=== PATIENT | female | born 1930 | race Hispanic/Latino ===

== ENCOUNTER 2017-08-03 11:46 | Inpatient (IN) | payer MEDICARE, BC ==
[2017-08-03 12:00] VITALS: BMI 26.0
--- NOTE | 2017-08-03 12:25 | C.PDOC ---
History Of Present Illness 87 Y/O FEMALE REFERRED TO ED BY DR. BRADLEY FOR WORSENING REDNESS AND SWELLING TO LEFT LEG FOR 5 DAYS. PATIENT STATES SYMPTOMS ARE NOT IMPROVED WITH WARM COMPRESS ADVISED BY DR. BRADLEY. PATIENT ADMITS TO CHRONIC LEG SWELLING LEFT > RIGHT BUT LEG MORE SWOLLEN THAN USUAL NOW. PATIENT DENIES FEVER, NAUSEA, VOMITING OR CHEST PAIN. Time Seen by Provider: 08/03/17 12:17 Chief Complaint (Nursing): Lower Extremity Problem/Injury History Per: Patient History/Exam Limitations: no limitations Onset/Duration Of Symptoms: Days Current Symptoms Are (Timing): Still Present Past Medical History Reviewed: Historical Data, Nursing Documentation, Vital Signs Vital Signs: Last Vital Signs Temp 98.0 F 08/03/17 12:01 Pulse 56 L 08/03/17 12:01 Resp 17 08/03/17 12:01 BP 160/88 H 08/03/17 12:01 Pulse Ox 97 08/03/17 14:16 - Medical History PMH: Anxiety, Arthritis, Back Problems, CAD, Depression, Deep Vein Thrombosis, Hiatal Hernia, HTN, Pulmonary Embolism Surgical History: Appendectomy, Cholecystectomy, Hernia Repair (ventral) - [facility] Procedures DRAINAGE OF LEFT KNEE JOINT, PERCUTANEOUS APPROACH, DIAGN (02/21/15) DRAINAGE OF RIGHT FOOT SKIN, EXTERNAL APPROACH (02/25/15) DRAINAGE OF RIGHT FOOT, PERCUTANEOUS APPROACH, DIAGNOSTIC (02/21/15) DRAINAGE OF RIGHT KNEE JOINT, PERCUTANEOUS APPROACH, DIAGN (02/21/15) EXCISION OF TOE NAIL, EXTERNAL APPROACH (02/25/15) GAIT TRAINING/AMBULAT TREATMENT USING ASSIST EQUIPMENT (02/25/15) HOME MANAGEMENT TREATMENT USING ASSIST EQUIPMENT (02/25/15) OTH NONOPER NEUROLOGIC FUNCT TEST (08/30/01) Family History: States: No Known Family Hx - Social History Hx Alcohol Use: No Hx Substance Use: No - Immunization History Hx Tetanus Toxoid Vaccination: No Hx Influenza Vaccination: Yes (2016) Hx Pneumococcal Vaccination: Yes Review Of Systems Constitutional: Negative for: Fever, Chills Cardiovascular: Negative for: Chest Pain Respiratory: Negative for: Shortness of Breath Gastrointestinal: Negative for: Nausea, Vomiting Musculoskeletal: Positive for: Leg Pain Skin: Negative for: Rash Neurological: Negative for: Weakness, Numbness Physical Exam - Physical Exam Appears: Non-toxic, No Acute Distress Skin: Warm, Dry, No Rash Head: Atraumatic, Normacephalic Oral Mucosa: Moist Neck: Normal ROM, Supple Cardiovascular: Rhythm Regular Respiratory: Normal Breath Sounds, No Rales, No Rhonchi, No Wheezing Gastrointestinal/Abdominal: Soft, No Tenderness, No Guarding, No Rebound Extremity: Pedal Edema (3+ non pitting to left foot and lower leg), No Deformity , Other (cellulitis at distal front aspect of left leg, foot and ankle intact. ) Extremity: Bilateral: Atraumatic, Normal ROM Pulses: Left Dorsalis Pedis: Normal Neurological/Psych: Oriented x3, Normal Speech, Normal Cognition ED Course And Treatment - Laboratory Results Result Diagrams: 08/03/17 13:50 08/03/17 13:50 O2 Sat by Pulse Oximetry: 97 (RA) Pulse Ox Interpretation: Normal - CT Scan/US DOPPLER Other Rad Studies (CT/US): Radiology Report Reviewed (NEG) Progress - Re-Evaluation Re-evaluation Note: 08/03/17 12:24 D/W DR BRADLEY STATES TO ADMIT TO HIS SERVICE, CONSULT ULYSSES FLORES AND CLAUDIO 08/03/17 14:21 LEFT LEG TIB FIB NEGATIVE Disposition Counseled Patient/Family Regarding: Studies Performed, Diagnosis - Disposition Disposition: HOSPITALIZED Disposition Time: 12:24 Condition: STABLE Forms: [facility] ([place]) - POA Present On Arrival: None - Clinical Impression Clinical Impression: Cellulitis - Scribe Statement The provider has reviewed the documentation as recorded by the Scribe Kelly Cheung All medical record entries made by the Natalyibe were at my direction and personally dictated by me. I have reviewed the chart and agree that the record accurately reflects my personal performance of the history, physical exam, medical decision making, and the department course for this patient. I have also personally directed, reviewed, and agree with the discharge instructions and disposition. Decision To Admit - Pt Status Changed To: Hospital Disposition Of: Inpatient - Admit Certification Admit to Inpatient:: After my assessment, the patient will require hospitalization for at least two midnights. This is because of the severity of symptoms shown, intensity of services needed, and/or the medical risk in this patient being treated as an outpatient. - InPatient: Physician Admission Certification: I certify that this patient requires 2 or more midnights of care for the following reason:: SEE NOTE - . Bed Request Type: Regular Admitting Physician: Radu Bradley Patient Diagnosis: Cellulitis
[2017-08-03] MEDS ORDERED: Vancomycin 1 gm/NS 200 ml 1 GM/200 ML BAG IVPB ONE (13:15)
[2017-08-03 13:56] LABS: BASO # 0.1 K/uL (0.0-0.2); BASO % 1.6 % (0.0-2.0); EOS % 0.5 % (0.0-4.0); HEMOGLOBIN 13.5 g/dL (11.0-16.0); LYMPH # 1.7 K/uL (1.0-4.3); LYMPH % 20.8 % (20.0-40.0); MEAN CELL VOLUME 100.7 fL (81.0-99.0); MEAN CORPUSCULAR HEMOGLOBIN 34.8 pg (27.0-31.0); MEAN CORPUSCULAR HGB CONC 34.5 g/dL (33.0-37.0); MEAN PLATELET VOLUME 9.7 fL (7.2-11.7); MONO # 0.9 K/uL (0.0-0.8); NEUT # 5.4 K/uL (1.8-7.0); NEUT % 66.1 % (50.0-75.0); NRBC % 0.2 % (0.0-2.0); RBC 3.87 Mil/uL (3.80-5.20); RED CELL DISTRIBUTION WIDTH 13.6 % (11.5-14.5); WHITE BLOOD COUNT 8.2 K/uL (4.8-10.8)
[2017-08-03 14:08] LABS: BLOOD UREA NITROGEN 15 mg/dL (7-17); CALCIUM 9.5 mg/dl (8.6-10.4); GFR AFRICAN-AMERICAN > 60; GFR NON-AFRICAN AMERICAN > 60
--- NOTE | 2017-08-03 15:41 | RAD ---
PROCEDURE: Radiographs of the left tibia and fibula. HISTORY: CELLULITIS COMPARISON: None available. TECHNIQUE: Frontal and lateral views obtained. FINDINGS: BONES: No fracture or destructive lesion. JOINT SPACES: Incompletely visualized degenerative changes left knee and left ankle. OTHER FINDINGS: Soft tissue swelling, edema up particularly lower calf and ankle. IMPRESSION: Soft tissue swelling without acute articular or osseous abnormality. Concordant results with the preliminary interpretation rendered by the emergency department physician procedure.
--- NOTE | 2017-08-03 15:42 | RAD ---
PROCEDURE: CHEST RADIOGRAPH, 1 VIEW HISTORY: MED CLEAR COMPARISON: None available. FINDINGS: LUNGS: Clear. PLEURA: No pneumothorax or pleural fluid seen. CARDIOVASCULAR: Cardiomegaly. No evidence of acute, significant cardiovascular disease. Tortuous thoracic aorta. OSSEOUS STRUCTURES: No significant abnormalities. VISUALIZED UPPER ABDOMEN: Normal. OTHER FINDINGS: None. IMPRESSION: No active disease.
--- NOTE | 2017-08-03 16:37 | CP.PCM.HP ---
Past Patient History - Infectious Disease Hx of Infectious Diseases: None - Past Medical History & Family History Past Medical History?: Yes - Past Social History Smoking Status: Never Smoked - CARDIAC Hx Hypertension: Yes - PULMONARY Hx Pulmonary Embolism: Yes - NEUROLOGICAL Hx Neurological Disorder: Yes HX Cerebrovascular Accident: No Other/Comment: hx of sciatica - HEENT Hx HEENT Problems: Yes (SEE COMMENT) Hx Glaucoma: Yes (right eye) Other/Comment: glaucoma - RENAL Hx Chronic Kidney Disease: No - ENDOCRINE/METABOLIC Hx Hypothyroidism: No - HEMATOLOGICAL/ONCOLOGICAL Hx Human Immunodeficiency Virus (HIV): No - INTEGUMENTARY Hx Dermatological Problems: No - MUSCULOSKELETAL/RHEUMATOLOGICAL Hx Arthritis: Yes - GASTROINTESTINAL Hx Gastrointestinal Disorders: No - GENITOURINARY/GYNECOLOGICAL Hx Genitourinary Disorders: No - PSYCHIATRIC Hx Anxiety: Yes Hx Depression: Yes Hx Substance Use: No - SURGICAL HISTORY Hx Appendectomy: Yes Hx Cholecystectomy: Yes - ANESTHESIA Hx Anesthesia: Yes Hx Anesthesia Reactions: No Meds Allergies/Adverse Reactions: Allergies Allergy/AdvReac Type Severity Reaction Status Date / Time oxycodone Allergy ANAPHYLAXIS Verified 08/03/17 11:59 Results - Vital Signs Recent Vital Signs: Last Vital Signs Temp 97.3 F L 08/03/17 14:47 Pulse 50 L 08/03/17 14:47 Resp 18 08/03/17 14:47 BP 168/70 H 08/03/17 14:47 Pulse Ox 98 08/03/17 14:47 - Labs Result Diagrams: 08/03/17 13:50 08/03/17 13:50 Labs: Laboratory Results - last 24 hr 08/03/17 08/03/17 13:50 13:50 WBC 8.2 RBC 3.87 Hgb 13.5 Hct 39.0 MCV 100.7 H MCH 34.8 H MCHC 34.5 RDW 13.6 Plt Count 245 MPV 9.7 Neut % (Auto) 66.1 Lymph % (Auto) 20.8 [place] % (Auto) 11.0 H Eos % (Auto) 0.5 Baso % (Auto) 1.6 Neut # (Auto) 5.4 Lymph # (Auto) 1.7 [place] # (Auto) 0.9 H Eos # (Auto) 0.0 Baso # (Auto) 0.1 Sodium 143 Potassium 3.8 Chloride 104 Carbon Dioxide 27 Anion Gap 15 BUN 15 Creatinine 0.7 Est GFR ( Amer) > 60 Est GFR (Non-Af Amer) > 60 Random Glucose 88 Calcium 9.5
[2017-08-03] MEDS: ceFAZolin 1 GM in Sodium Chloride 0.9% 100 ML IVPB SCH (22:00)
[2017-08-04] MEDS: ceFAZolin 1 GM in Sodium Chloride 0.9% 100 ML IVPB SCH ×3 (06:49→22:04)
[2017-08-04] MEDS ORDERED: Dorzolamide 2% Opht Sol 10ml OU SCH (10:00)
--- NOTE | 2017-08-04 10:58 | VASCLAB ---
PROCEDURE: Left Lower Extremity Venous Duplex Exam. HISTORY: R/O DVT PRIORS: Lower extremity ultrasound dated 06/02/2016. TECHNIQUE: Left common femoral, femoral, popliteal and posterior tibial, peroneal and great saphenous veins were evaluated. Flow was assessed with color Doppler, compressibility, assessment of phasic flow and augmentation response. Report prepared by Nehemias Dominguez, STEPHANI, RVT FINDINGS: LEFT: 1. Common Femoral Vein: 1.1. Compressibility - Fully compressible: Thrombus - None : Flow - Phasic: Augmentation -Normal: Reflux - None. 2. Femoral Vein: 2.1. Compressibility - Fully compressible: Thrombus - None: Flow - Phasic: Augmentation -Normal: Reflux - None. 3. Popliteal Vein: 3.1. Compressibility - Fully compressible: Thrombus - None: Flow - Phasic: Augmentation -Normal: Reflux - severe, 4.69 s. 4. Posterior Tibial Vein: 4.1. Compressibility - Fully compressible: Thrombus - None: Flow - Phasic: Augmentation -Normal: Reflux - None. 5. Peroneal Vein: 5.1. Compressibility - Fully compressible: Thrombus - None: Flow - Phasic: Augmentation -Normal: Reflux - None. 6. Great Saphenous Vein: 6.1. Compressibility - Fully compressible: Thrombus - None: Flow - Phasic: Augmentation - Normal: Reflux - moderate, 2.65 seconds. OTHER FINDINGS: IMPRESSION: No evidence of deep or superficial vein thrombosis of the left lower extremity with excellent venous flow. Severe reflux of the popliteal vein. Moderate reflux of the greater saphenous vein. Normal venous flow noted in the right common femoral vein.
[2017-08-04] MEDS: Oxybutynin XL 10 mg Tab PO SCH (11:00)
[2017-08-04] MEDS: Pilocarpine 2% Opht (15 ml) OU SCH ×3 (11:00→17:45)
[2017-08-04 11:37] LABS: PROTHROMBIN TIME 11.3 SECONDS (9.7-12.2)
[2017-08-04] MEDS ORDERED: Propofol 10 mg/ml Inj (20 ML) ONE ×2 (12:40→15:12)
[2017-08-04] MEDS ORDERED: Midazolam 2 MG/2 ML VIAL ONE (12:40)
--- NOTE | 2017-08-04 12:58 | CARD ---
APPROVED REPORT EKG Measurement Heart [id number] SC [id number] [id number] <Conclusion> Sinus bradycardia Left ventricular hypertrophy with QRS widening and repolarization abnormality Abnormal ECG
--- NOTE | 2017-08-04 12:59 | CARD ---
APPROVED REPORT EKG Measurement Heart [id number] CO [id number] [id number] <Conclusion> Sinus bradycardia Left ventricular hypertrophy with QRS widening and repolarization abnormality Abnormal ECG
--- NOTE | 2017-08-04 13:27 | CP.PCM.CON ---
History of Present Illness - History of Present Illness History of Present Illness: 87 Y/O FEMALE REFERRED TO ED BY DR. BRADLEY FOR WORSENING REDNESS AND SWELLING TO LEFT LEG FOR 5 DAYS. PATIENT STATES SYMPTOMS ARE NOT IMPROVED WITH WARM COMPRESS ADVISED BY DR. BRADLEY. referred for ID eval cellulitis left leg IV antibiotics ordered - Medical History PMH: Anxiety, Arthritis, Back Problems, CAD, Depression, Deep Vein Thrombosis, Hiatal Hernia, HTN, Pulmonary Embolism Surgical History: Appendectomy, Cholecystectomy, Hernia Repair (ventral) - [facility] Procedures DRAINAGE OF LEFT KNEE JOINT, PERCUTANEOUS APPROACH, DIAGN (02/21/15) DRAINAGE OF RIGHT FOOT SKIN, EXTERNAL APPROACH (02/25/15) DRAINAGE OF RIGHT FOOT, PERCUTANEOUS APPROACH, DIAGNOSTIC (02/21/15) DRAINAGE OF RIGHT KNEE JOINT, PERCUTANEOUS APPROACH, DIAGN (02/21/15) EXCISION OF TOE NAIL, EXTERNAL APPROACH (02/25/15) GAIT TRAINING/AMBULAT TREATMENT USING ASSIST EQUIPMENT (02/25/15) HOME MANAGEMENT TREATMENT USING ASSIST EQUIPMENT (02/25/15) OTH NONOPER NEUROLOGIC FUNCT TEST (08/30/01) Review of Systems - Review of Systems All systems: reviewed and no additional remarkable complaints except - Constitutional Constitutional: absent: Chills, Fever - EENT Eyes: As Per HPI. absent: Blind Spots, Blurred Vision, Change in Vision, Decreased Night Vision, Diplopia, Discharge, Dry Eye, Exophthalmos, Floaters, Irritation, Itchy Eyes, Loss of Peripheral Vision, Pain, Photophobia, Requires Corrective Lenses, Sees Flashes, Spots in Vision, Tunnel Vision, Other Visual Disturbances, Loss of Vision, Other Ears: absent: As Per HPI, Decreased Hearing, Ear Discharge, Ear Pain, Tinnitus, Abnormal Hearing, Disequilibrium, Dizziness, Other Nose/Mouth/Throat: absent: As Per HPI, Epistaxis, Nasal Congestion, Nasal Discharge, Nasal Obstruction, Nasal Trauma, Nose Pain, Post Nasal Drip, Sinus Pain, Sinus Pressure, Bleeding Gums, Change in Voice, Dental Pain, Dry Mouth, Dysphagia, Halitosis, Hoarsness, Lip Swelling, Mouth Lesions, Mouth Pain, Odynophagia, Sore Throat, Throat Swelling, Tongue Swelling, Facial Pain, Neck Pain, Neck Mass, Other - Breasts Breasts: absent: As Per HPI, Change in Shape, Mass, Pain, Nipple Discharge, Nipple Inversion, Skin Changes, Swelling, Other - Cardiovascular Cardiovascular: absent: As Per HPI, Acrocyanosis, Chest Pain, Chest Pain at Rest , Chest Pain with Activity, Claudication, Diaphoresis, Dyspnea, Dyspnea on Exertion, Edema, Irregular Heart Rhythm, Pain Radiating to Arm/Neck/Jaw, Leg Edema, Leg Ulcers, Lightheadedness, Orthopnea, Palpitations, Paroxysmal Nocturnal Dyspnea, Pedal Edema, Radiating Pain, Rapid Heart Rate, Slow Heart Rate, Syncope, Other - Respiratory Respiratory: absent: As Per HPI, Cough, Dyspnea, Hemoptysis, Dyspnea on Exertion , Wheezing, Snoring, Stridor, Pain on Inspiration, Chest Congestion, Excessive Mucous Production, Change in Mucous Color, Pain with Coughing, Other - Gastrointestinal Gastrointestinal: absent: As Per HPI, Abdominal Pain, Belching, Bloating, Change in Bowel Habits, Change in Stool Character, Coffee Ground Emesis, Constipation, Cramping, Diarrhea, Dyspepsia, Dysphagia, Early Satiety, Excessive Flatus, Fecal Incontinence, Heartburn, Hematemesis, Hematochezia, Loose Stools, Melena, Nausea, Odynophagia, Temesmus, Vomiting, Other - Genitourinary Genitourinary: absent: As Per HPI, Change in Urinary Stream, Difficulty Urinating, Dysuria, Flank Pain, Hematuria, Pyuria, Nocturia, Urinary Incontinence, Urinary Frequency, Urinary Hesitance, Urinary Urgency, Voiding Freq/Small Amts, Freq UTI, Hx Renal/Bladder Calculi, Hx /Renal Surgery, Bladder Distension, Other - Reproductive: Female Reproductive:Female: absent: As Per HPI, Amenorrhea, Amenorrhea/ Control, Currently Menstual, Cycle <21 Days, Cycle >35 Days, Cycle Variable, Menses 1-7 Days, Menses >/= 8 Days, Menses Variable, Cycle > 4 Weeks Between, No Menses for 6 Months, Heavy Menses, Light Menses, Normal Menses, Spotting Between Cycles , S/P Hysterectomy, Menopausal, Post Menopausal, Premenarche, Abnormal Vaginal Bleeding, Dysmenorrhea, Dyspareunia, Genital Lesions, Genital Pruritis, Pelvic Pain, Prolapse Symptoms, Sexual Dysfunction, Vaginal Discharge, Vaginal Dryness , Vaginal Odor, Vaginal Pruritis, Other - Menstruation Menstruation: absent: As Per HPI, Amenorrhea, Amenorrhea/ Control, Currently Menstual, Cycle <21 Days, Cycle >35 Days, Cycle Variable, Menses 1-7 Days, Menses >/= 8 Days, Menses Variable, Cycle > 4 Weeks Between, No Menses for 6 Months, Heavy Menses, Light Menses, Normal Menses, Spotting Between Cycles , S/P Hysterectomy, Menopausal, Post Menopausal, Premenarche, Abnormal Vaginal Bleeding, Dysmenorrhea, Other - Musculoskeletal Musculoskeletal: absent: As Per HPI, Abnormal Gait, Arthralgias, Atrophy, Back Pain, Deformity, Joint Swelling, Limited Range of Motion, Loss of Height, Muscle Cramps, Muscle Weakness, Myalgias, Neck Pain, Numbness, Radiating Pain into Limb, Stiffness, Tingling, Other - Integumentary Integumentary: As Per HPI - Neurological Neurological: absent: As Per HPI, Abnormal Gait, Abnormal Hearing, Abnormal Movements, Abnormal Speech, Behavioral Changes, Burning Sensations, Confusion, Convulsions, Disequilibrium, Dizziness, Numbness, Focal Weakness, Frequent Falls , Headaches, Lack of Coordination, Loss of Vision, Memory Loss, Paresthesias, Radicular Pain, Restless Legs, Sensory Deficit, Syncope, Tingling, Tremor, Vertigo, Weakness, Other Visual Disturbances, Other - Psychiatric Psychiatric: absent: As Per HPI, Abnormal Sleep Pattern, Anhedonia, Anxiety, Auditory Hallucinations, Behavioral Changes, Change in Appetite, Change in Libido, Confusion, Depression, Difficulty Concentrating, Hallucinations, Homicidal Ideation, Hopelessness, Irritability, Memory Loss, Mood Swings, Panic Attacks, Paranoia, Suicidal Ideation, Visual Hallucinations, Tactile Hallucinations, Other - Endocrine Endocrine: absent: As Per HPI, Change in Body Appearance, Change in Libido, Cold Intolorance, Deepening of Voice, Excessive Sweating, Fatigue, Flushing, Heat Intolorance, Increase in Ring/Shoe/Hat Size, Palpitations, Polydipsia, Polyphagia, Polyuria, Other - Hematologic/Lymphatic Hematologic: absent: As Per HPI, Easy Bleeding, Easy Bruising, Lymphadenopathy, Other Past Patient History - Infectious Disease Hx of Infectious Diseases: None - Past Medical History & Family History Past Medical History?: Yes - Past Social History Smoking Status: Never Smoked - CARDIAC Hx Hypertension: Yes - PULMONARY Hx Pulmonary Embolism: Yes - NEUROLOGICAL Hx Neurological Disorder: Yes HX Cerebrovascular Accident: No Other/Comment: hx of sciatica - HEENT Hx HEENT Problems: Yes (SEE COMMENT) Hx Glaucoma: Yes (right eye) Other/Comment: glaucoma - RENAL Hx Chronic Kidney Disease: No - ENDOCRINE/METABOLIC Hx Hypothyroidism: No - HEMATOLOGICAL/ONCOLOGICAL Hx Human Immunodeficiency Virus (HIV): No - INTEGUMENTARY Hx Dermatological Problems: No - MUSCULOSKELETAL/RHEUMATOLOGICAL Hx Arthritis: Yes Hx Falls: No - GASTROINTESTINAL Hx Gastrointestinal Disorders: No - GENITOURINARY/GYNECOLOGICAL Hx Genitourinary Disorders: No - PSYCHIATRIC Hx Anxiety: Yes Hx Depression: Yes Hx Substance Use: No - SURGICAL HISTORY Hx Appendectomy: Yes Hx Cholecystectomy: Yes Hx Hysterectomy: Yes - ANESTHESIA Hx Anesthesia: Yes Hx Anesthesia Reactions: No Hx Malignant Hyperthermia: No Has any member of the family had a problem w/ anesthesia?: No Meds Allergies/Adverse Reactions: Allergies Allergy/AdvReac Type Severity Reaction Status Date / Time oxycodone Allergy ANAPHYLAXIS Verified 08/03/17 11:59 - Medications Medications: Current Medications Apixaban (Eliquis) 5 mg PO BID [facility] Last Admin: 08/04/17 10:21 Dose: Not Given Atenolol (Tenormin) 25 mg PO Q24H [facility] Dorzolamide HCl (Trusopt) 0 ml OU BID [facility] Cefazolin Sodium 1 gm/ Sodium (Chloride) 100 mls @ 100 mls/hr IVPB Q8H [facility] PRN Reason: Protocol Last Admin: 08/04/17 06:49 Dose: 100 mls/hr Latanoprost (Xalatan Opht) 0 ml OU HS [facility] Losartan Potassium (Cozaar) 100 mg PO DAILY [facility] Last Admin: 08/04/17 10:21 Dose: 100 mg Oxybutynin Chloride (Ditropan Xl) 10 mg PO DAILY [facility] Last Admin: 08/04/17 11:00 Dose: 10 mg Pilocarpine HCl (Isopto Carpine 2% Opht Soln) 1 drop OU TID [facility] Last Admin: 08/04/17 11:00 Dose: 1 drop Rosuvastatin Calcium (Crestor) 5 mg PO HS [facility] Sucralfate (Carafate Tab) 1 gm PO TID PRN PRN Reason: Heartburn Timolol Maleate (Timoptic 0.5% Ophth Soln) 1 drop OU BID [facility] Tramadol HCl (Ultram) 50 mg PO TID [facility] Last Admin: 08/04/17 10:28 Dose: Not Given Physical Exam - Constitutional Appears: Non-toxic, Chronically Ill - Head Exam Head Exam: NORMOCEPHALIC - Eye Exam Eye Exam: PERRL. absent: Scleral icterus - ENT Exam ENT Exam: Mucous Membranes Dry, Normal External Ear Exam - Neck Exam Neck exam: Negative for: Lymphadenopathy - Respiratory Exam Respiratory Exam: Decreased Breath Sounds - Cardiovascular Exam Cardiovascular Exam: REGULAR RHYTHM - GI/Abdominal Exam GI & Abdominal Exam: Diminished Bowel Sounds, Soft. absent: Tenderness - Rectal Exam Rectal Exam: Deferred - Exam Exam: NORMAL INSPECTION - Extremities Exam Extremities exam: Positive for: pedal edema, tenderness. Negative for: calf tenderness, normal inspection - Back Exam Back exam: absent: CVA tenderness (L), CVA tenderness (R) - Neurological Exam Neurological exam: Alert, CN II-XII Intact, Oriented x3, Reflexes Normal - Psychiatric Exam Psychiatric exam: Normal Mood - Skin Skin Exam: Dry Results - Vital Signs Recent Vital Signs: Last Vital Signs Temp 98.7 F 08/04/17 08:00 Pulse 67 08/04/17 08:00 Resp 20 08/04/17 08:00 BP 183/93 H 08/04/17 08:00 Pulse Ox 96 08/04/17 08:00 - Labs Result Diagrams: 08/03/17 13:50 08/03/17 13:50 Labs: Laboratory Results - last 24 hr 08/03/17 08/03/17 08/04/17 13:50 13:50 11:24 WBC 8.2 RBC 3.87 Hgb 13.5 Hct 39.0 MCV 100.7 H MCH 34.8 H MCHC 34.5 RDW 13.6 Plt Count 245 MPV 9.7 Neut % (Auto) 66.1 Lymph % (Auto) 20.8 [place] % (Auto) 11.0 H Eos % (Auto) 0.5 Baso % (Auto) 1.6 Neut # (Auto) 5.4 Lymph # (Auto) 1.7 [place] # (Auto) 0.9 H Eos # (Auto) 0.0 Baso # (Auto) 0.1 PT 11.3 INR 1.0 APTT 31 Sodium 143 Potassium 3.8 Chloride 104 Carbon Dioxide 27 Anion Gap 15 BUN 15 Creatinine 0.7 Est GFR ( Amer) > 60 Est GFR (Non-Af Amer) > 60 Random Glucose 88 Calcium 9.5 Assessment & Plan (1) Cellulitis Status: Acute - Assessment and Plan (Free Text) Assessment: await cultures cont iv antibiotics
[2017-08-04] MEDS ORDERED: ceFAZolin 1 gm in NS 1 GM/100 ML BAG IVPB ONE (15:08)
[2017-08-04] MEDS ORDERED: Bupivacaine HCl 0.25% PF (30 ml) Inj ONE (15:25)
[2017-08-04] MEDS ORDERED: Bacitracin Ointment 30 GM TUBE ONE (15:25)
[2017-08-04] MEDS ORDERED: Bupivacaine HCl 0.5% PF (30 ml) Inj ONE (15:25)
[2017-08-04] MEDS ORDERED: HYDROmorphone 0.5 mg/0.5 ml ISec IVP PRN (15:51)
[2017-08-04] MEDS: Dorzolamide 2% Opht Sol 10ml OU SCH (18:52)
[2017-08-04] MEDS ORDERED: Nitroglycerin 2% Ointment Foilpak UD TOP PRN (20:10)
[2017-08-04] MEDS: Latanoprost 2.5 ml Opht Soln OU SCH ×2 (21:36→21:43)
--- NOTE | 2017-08-04 22:40 | CP.PCM.PN ---
Subjective - Date & Time of Evaluation Date of Evaluation: 08/04/17 Time of Evaluation: 17:20 - Subjective Subjective: PT SEEN AND EXAMINED,I S/P RIGHT LEG SURGERY, HER B.P IS HIGH, SHE FEELS WEAK, R referred for ID eval cellulitis left leg IV antibiotics ordered. AWAITING CULTURES Objective - Vital Signs/Intake and Output Vital Signs (last 24 hours): Temp Pulse Resp BP Pulse Ox 98.9 F 65 18 152/73 H 97 08/04/17 16:55 08/04/17 16:55 08/04/17 16:55 08/04/17 16:55 08/04/17 16:55 Intake and Output: 08/04/17 08/05/17 18:59 06:59 Intake Total 950 340 Balance 950 340 - Medications Medications: Current Medications Apixaban (Eliquis) 5 mg PO BID [facility] OF [facility] Last Admin: 08/04/17 17:45 Dose: 5 mg Atenolol (Tenormin) 25 mg PO Q24H [facility] Last Admin: 08/04/17 18:43 Dose: 25 mg Dorzolamide HCl (Trusopt) 0 ml OU BID [facility] Last Admin: 08/04/17 18:52 Dose: 1 drop Cefazolin Sodium 1 gm/ Sodium (Chloride) 100 mls @ 100 mls/hr IVPB Q8H [facility] PRN Reason: Protocol Last Admin: 08/04/17 22:04 Dose: 100 mls/hr Latanoprost (Xalatan Opht) 0 ml OU HS [facility] Last Admin: 08/04/17 21:43 Dose: Not Given Losartan Potassium (Cozaar) 100 mg PO DAILY [facility] Last Admin: 08/04/17 10:21 Dose: 100 mg Nitroglycerin (Nitro-Bid 2% Oint) 1 ea TOP Q6 PRN PRN Reason: high b/p m Oxybutynin Chloride (Ditropan Xl) 10 mg PO DAILY [facility] Last Admin: 08/04/17 11:00 Dose: 10 mg Pilocarpine HCl (Isopto Carpine 2% Opht Soln) 1 drop OU TID [facility] Last Admin: 08/04/17 17:45 Dose: 1 drop Rosuvastatin Calcium (Crestor) 5 mg PO HS [facility] Last Admin: 08/04/17 21:44 Dose: Not Given Sucralfate (Carafate Tab) 1 gm PO TID PRN PRN Reason: Heartburn Timolol Maleate (Timoptic 0.5% Ophth Soln) 1 drop OU BID [facility] Last Admin: 08/04/17 17:47 Dose: 1 drop Tramadol HCl (Ultram) 50 mg PO TID [facility] Last Admin: 08/04/17 18:53 Dose: Not Given - Labs Labs: 08/03/17 13:50 08/03/17 13:50 PT 11.3 SECONDS (9.7-12.2) 08/04/17 11:24 INR 1.0 08/04/17 11:24 APTT 31 SECONDS (21-34) 08/04/17 11:24 - Constitutional Appears: No Acute Distress - Head Exam Head Exam: ATRAUMATIC, NORMAL INSPECTION, NORMOCEPHALIC - Eye Exam Eye Exam: EOMI, Normal appearance, PERRL Pupil Exam: NORMAL ACCOMODATION, PERRL - Respiratory Exam Respiratory Exam: Clear to Ausculation Bilateral, NORMAL BREATHING PATTERN - Cardiovascular Exam Cardiovascular Exam: REGULAR RHYTHM, +S1, +S2. absent: Murmur - GI/Abdominal Exam GI & Abdominal Exam: Soft, Normal Bowel Sounds. absent: Tenderness - Rectal Exam Rectal Exam: Deferred Assessment and Plan (1) Cellulitis Status: Acute (2) Anxiety Status: Acute (3) Chest pain Status: Acute (4) Leg pain, bilateral Status: Acute (5) Hypertension Status: Chronic
--- NOTE | 2017-08-05 02:40 | OP ---
PROCEDURE DATE: 08/04/2017 PREOPERATIVE DIAGNOSES: 1. Abscess and infected wound, in the right leg. 2. Mass in the right leg. PROCEDURE PERFORMED: 1. Wide and deep excision mass in the right leg with adjacent tissue transfer closure. 2. Debridement of infected wound on the right leg with drainage of abscess. SURGEON: Radu Beatty MD TYPE OF ANESTHESIA: General. ESTIMATED BLOOD LOSS: 30 mL. POSTOPERATIVE CONDITION: Stable. INDICATIONS FOR SURGERY: This is an 87-year-old female who presents with bilateral cellulitis in the leg. On the right leg, she has an infected wound from falling a week ago and also has a mass which has been growing over the past year or so. She will now undergo wide deep excision of the mass and debridement of the infected wound, and drainage of possible abscess. PROCEDURE: The patient was taken to the operating room, general anesthesia was administered and the right leg was prepped and draped. Generous elliptical incision was made surrounding the mass, it was dissected free into the fascia and removed. The mass measured approximately 5 cm. Bleeding was controlled using a Bovie. The mass was removed and the tissue defect was closed, utilizing adjacent tissue transfer closure my mobilizing a full thickness flap including muscle and fascia, making counter incision was used in multiple layers of Monocryl, subcuticular Monocryl and skin clips. Next, wound on the leg was debrided, some pus was drained and cultured. It was irrigated and dressed sterilely. The patient tolerated the procedure well and returned to recovery room in stable condition. Radu Beatty MD
[2017-08-05] MEDS: ceFAZolin 1 GM in Sodium Chloride 0.9% 100 ML IVPB SCH ×3 (06:09→23:00)
[2017-08-05 06:30] LABS: BASO # 0.1 K/uL (0.0-0.2); BASO % 1.1 % (0.0-2.0); EOS # 0.1 K/uL (0.0-0.7); EOS % 0.8 % (0.0-4.0); HEMOGLOBIN 12.2 g/dL (11.0-16.0); LYMPH # 1.7 K/uL (1.0-4.3); LYMPH % 18.9 % (20.0-40.0); MEAN CELL VOLUME 100.8 fL (81.0-99.0); MEAN CORPUSCULAR HEMOGLOBIN 34.4 pg (27.0-31.0); MEAN CORPUSCULAR HGB CONC 34.2 g/dL (33.0-37.0); NEUT % 68.2 % (50.0-75.0); NRBC % 0.1 % (0.0-2.0); RBC 3.54 Mil/uL (3.80-5.20); RED CELL DISTRIBUTION WIDTH 13.6 % (11.5-14.5); WHITE BLOOD COUNT 8.7 K/uL (4.8-10.8)
[2017-08-05 07:34] LABS: BLOOD UREA NITROGEN 14 mg/dL (7-17); CALCIUM 8.9 mg/dl (8.6-10.4); GFR AFRICAN-AMERICAN > 60; GFR NON-AFRICAN AMERICAN > 60
--- NOTE | 2017-08-05 08:02 | CP.PCM.PN ---
Subjective - Date & Time of Evaluation Date of Evaluation: 08/05/17 Time of Evaluation: 19:00 - Subjective Subjective: Pt seen and examined at bedside Objective - Vital Signs/Intake and Output Vital Signs (last 24 hours): Temp Pulse Resp BP Pulse Ox 98.6 F 57 L 20 147/71 94 L 08/05/17 00:00 08/05/17 00:00 08/05/17 00:00 08/05/17 00:00 08/05/17 00:00 Intake and Output: 08/05/17 08/05/17 06:59 18:59 Intake Total 340 Balance 340 - Medications Medications: Current Medications Apixaban (Eliquis) 5 mg PO BID [facility] [place] Last Admin: 08/04/17 17:45 Dose: 5 mg Atenolol (Tenormin) 25 mg PO Q24H [facility] [place] Last Admin: 08/04/17 18:43 Dose: 25 mg Dorzolamide HCl (Trusopt) 0 ml OU BID [facility] [place] Last Admin: 08/04/17 18:52 Dose: 1 drop Cefazolin Sodium 1 gm/ Sodium (Chloride) 100 mls @ 100 mls/hr IVPB Q8H [facility] PRN Reason: Protocol Last Admin: 08/05/17 06:09 Dose: 100 mls/hr Latanoprost (Xalatan Opht) 0 ml OU HS [facility] [place] Last Admin: 08/04/17 21:43 Dose: Not Given Losartan Potassium (Cozaar) 100 mg PO DAILY [facility] [place] Last Admin: 08/04/17 10:21 Dose: 100 mg Nitroglycerin (Nitro-Bid 2% Oint) 1 ea TOP Q6 PRN PRN Reason: high b/p m Oxybutynin Chloride (Ditropan Xl) 10 mg PO DAILY [facility] [place] Last Admin: 08/04/17 11:00 Dose: 10 mg Pilocarpine HCl (Isopto Carpine 2% Opht Soln) 1 drop OU TID [facility] [place] Last Admin: 08/04/17 17:45 Dose: 1 drop Rosuvastatin Calcium (Crestor) 5 mg PO HS [facility] [place] Last Admin: 08/04/17 21:44 Dose: Not Given Sucralfate (Carafate Tab) 1 gm PO TID PRN PRN Reason: Heartburn Timolol Maleate (Timoptic 0.5% Ophth Soln) 1 drop OU BID [facility] [place] Last Admin: 08/04/17 17:47 Dose: 1 drop Tramadol HCl (Ultram) 50 mg PO TID [facility] [place] Last Admin: 08/04/17 18:53 Dose: Not Given - Labs Labs: 08/05/17 06:20 08/05/17 06:20 PT 11.3 SECONDS (9.7-12.2) 08/04/17 11:24 INR 1.0 08/04/17 11:24 APTT 31 SECONDS (21-34) 08/04/17 11:24 Assessment and Plan (1) Cellulitis Status: Acute (2) Anxiety Status: Acute (3) Chest pain Status: Acute (4) Leg pain, bilateral Status: Acute (5) Hypertension Status: Chronic
[2017-08-05] MEDS: Pilocarpine 2% Opht (15 ml) OU SCH ×4 (10:07→18:05)
[2017-08-05] MEDS: Oxybutynin XL 10 mg Tab PO SCH (10:08)
[2017-08-05] MEDS: Dorzolamide 2% Opht Sol 10ml OU SCH ×2 (10:49→18:00)
[2017-08-05] MEDS ORDERED: Midazolam 2 MG/2 ML VIAL ONE (11:12)
[2017-08-05] MEDS ORDERED: Propofol 10 mg/ml Inj (20 ML) ONE (11:12)
[2017-08-05] MEDS ORDERED: Bacitracin Ointment 30 GM TUBE ONE (12:12)
[2017-08-05] MEDS ORDERED: HYDROmorphone 0.5 mg/0.5 ml ISec IVP PRN (12:28)
[2017-08-05] MEDS: Nystatin 100,000 Units/gm Topical Pow(15 gm) TOP SCH (18:05)
--- NOTE | 2017-08-05 19:41 | CP.PCM.PN ---
Subjective - Date & Time of Evaluation Date of Evaluation: 08/05/17 Time of Evaluation: 08:00 - Subjective Subjective: seen at bedside with RN alert NAD Objective - Vital Signs/Intake and Output Vital Signs (last 24 hours): Temp Pulse Resp BP Pulse Ox 97.4 F L 62 20 167/83 H 94 L 08/05/17 15:15 08/05/17 15:15 08/05/17 15:15 08/05/17 15:15 08/05/17 15:15 Intake and Output: 08/05/17 08/06/17 18:59 06:59 Intake Total 1000 Balance 1000 - Medications Medications: Current Medications Apixaban (Eliquis) 5 mg PO BID [facility] Last Admin: 08/05/17 18:02 Dose: 5 mg Atenolol (Tenormin) 25 mg PO Q24H [facility] Last Admin: 08/05/17 18:07 Dose: 25 mg Dorzolamide HCl (Trusopt) 0 ml OU BID [facility] Last Admin: 08/05/17 10:49 Dose: 1 drop Cefazolin Sodium 1 gm/ Sodium (Chloride) 100 mls @ 100 mls/hr IVPB Q8H [facility] PRN Reason: Protocol Last Admin: 08/05/17 14:08 Dose: 100 mls/hr Latanoprost (Xalatan Opht) 0 ml OU HS [facility] Last Admin: 08/04/17 21:43 Dose: Not Given Losartan Potassium (Cozaar) 100 mg PO DAILY [facility] Last Admin: 08/05/17 10:07 Dose: 100 mg Nitroglycerin (Nitro-Bid 2% Oint) 1 ea TOP Q6 PRN PRN Reason: high b/p m Nystatin (Nystop Topical Powder) 0 gm TOP BID [facility] Last Admin: 08/05/17 18:05 Dose: 1 applic Oxybutynin Chloride (Ditropan Xl) 10 mg PO DAILY [facility] Last Admin: 08/05/17 10:08 Dose: 10 mg Pilocarpine HCl (Isopto Carpine 2% Opht Soln) 1 drop OU TID [facility] Last Admin: 08/05/17 18:05 Dose: 1 drop Rosuvastatin Calcium (Crestor) 5 mg PO HS [facility] Last Admin: 08/04/17 21:44 Dose: Not Given Sucralfate (Carafate Tab) 1 gm PO TID PRN PRN Reason: Heartburn Timolol Maleate (Timoptic 0.5% Ophth Soln) 1 drop OU BID [facility] Last Admin: 08/05/17 18:05 Dose: 1 drop Tramadol HCl (Ultram) 50 mg PO TID [facility] Last Admin: 08/05/17 18:02 Dose: 50 mg - Labs Labs: 08/05/17 06:20 08/05/17 06:20 PT 11.3 SECONDS (9.7-12.2) 08/04/17 11:24 INR 1.0 08/04/17 11:24 APTT 31 SECONDS (21-34) 08/04/17 11:24 - Constitutional Appears: Non-toxic, Chronically Ill - Head Exam Head Exam: NORMOCEPHALIC - Eye Exam Eye Exam: PERRL - ENT Exam ENT Exam: Mucous Membranes Dry - Neck Exam Neck Exam: absent: Lymphadenopathy - Respiratory Exam Respiratory Exam: Decreased Breath Sounds - Cardiovascular Exam Cardiovascular Exam: REGULAR RHYTHM - GI/Abdominal Exam GI & Abdominal Exam: Distended - Rectal Exam Rectal Exam: Deferred - Exam Exam: NORMAL INSPECTION - Extremities Exam Extremities Exam: Tenderness. absent: Calf Tenderness Additional comments: less redness/ cellulitis left leg right leg dressing in tact - Back Exam Back Exam: absent: CVA tenderness (L), CVA tenderness (R) - Neurological Exam Neurological Exam: Alert, Awake, Oriented x3 - Psychiatric Exam Psychiatric exam: Normal Mood Assessment and Plan (1) Cellulitis Status: Acute
[2017-08-05] MEDS: Latanoprost 2.5 ml Opht Soln OU SCH (21:17)
--- NOTE | 2017-08-06 00:04 | OP ---
PROCEDURE DATE: 08/05/2017 PREOPERATIVE DIAGNOSIS: Infected open wound of the right leg. POSTOPERATIVE DIAGNOSIS: Infected open wound of the right leg. PROCEDURE PERFORMED: Re-debridement and drainage of right leg abscess with pulse irrigation and debridement of infected open wound on the right leg and partial closure. SURGEON: Radu Beatty MD TYPE OF ANESTHESIA: General. ESTIMATED BLOOD LOSS: 20 mL POSTOPERATIVE CONDITION: Stable. DESCRIPTION OF PROCEDURE: The patient taken to the operating room, general anesthesia administered, and the right leg was prepped and draped. The previous open wound and abscess was re-debrided and any remaining collections were drained and cultured. Bleeding was controlled using Bovie and a larger blood vessel was repaired. The wound was pulse irrigated with saline and Kantrex solution and partial tissue transfer closure was performed at the periphery. Central portion of the wound was dressed with Bacitracin and dressed sterilely. The patient tolerated the procedure well and returned to the recovery room in stable condition. Radu Beatty MD
[2017-08-06] MEDS: ceFAZolin 1 GM in Sodium Chloride 0.9% 100 ML IVPB SCH ×3 (06:03→22:05)
[2017-08-06] MEDS: Pilocarpine 2% Opht (15 ml) OU SCH ×3 (09:00→18:38)
[2017-08-06] MEDS: Dorzolamide 2% Opht Sol 10ml OU SCH ×2 (09:10→18:49)
[2017-08-06] MEDS: Oxybutynin XL 10 mg Tab PO SCH (09:16)
[2017-08-06] MEDS: Nystatin 100,000 Units/gm Topical Pow(15 gm) TOP SCH ×2 (09:17→18:38)
[2017-08-06] MEDS ORDERED: Propofol 10 mg/ml Inj (20 ML) ONE (14:02)
[2017-08-06] MEDS ORDERED: Bacitracin Ointment 30 GM TUBE ONE (14:11)
[2017-08-06] MEDS ORDERED: Morphine 4 MG/ML VIAL IVP PRN (14:23)
--- NOTE | 2017-08-06 17:49 | CP.PCM.PN ---
Subjective - Date & Time of Evaluation Date of Evaluation: 08/06/17 Time of Evaluation: 09:00 - Subjective Subjective: improving nad Objective - Vital Signs/Intake and Output Vital Signs (last 24 hours): Temp Pulse Resp BP Pulse Ox 98.1 F 58 L 15 174/82 H 96 08/06/17 15:29 08/06/17 15:29 08/06/17 15:29 08/06/17 15:29 08/06/17 15:15 Intake and Output: 08/06/17 08/06/17 06:59 18:59 Intake Total 440 Balance 440 - Medications Medications: Current Medications Apixaban (Eliquis) 5 mg PO BID [facility] Last Admin: 08/06/17 11:13 Dose: Not Given Atenolol (Tenormin) 25 mg PO Q24H [facility] Last Admin: 08/05/17 18:07 Dose: 25 mg Dorzolamide HCl (Trusopt) 0 ml OU BID [facility] Last Admin: 08/06/17 09:10 Dose: 1 drop Cefazolin Sodium 1 gm/ Sodium (Chloride) 100 mls @ 100 mls/hr IVPB Q8H [facility] PRN Reason: Protocol Last Admin: 08/06/17 14:20 Dose: Not Given Latanoprost (Xalatan Opht) 0 ml OU HS [facility] Last Admin: 08/05/17 21:17 Dose: 2.5 ml Losartan Potassium (Cozaar) 100 mg PO DAILY [facility] Last Admin: 08/06/17 11:00 Dose: 100 mg Nitroglycerin (Nitro-Bid 2% Oint) 1 ea TOP Q6 PRN PRN Reason: high b/p m Last Admin: 08/06/17 09:45 Dose: 1 ea Nystatin (Nystop Topical Powder) 0 gm TOP BID [facility] Last Admin: 08/06/17 09:17 Dose: 1 applic Oxybutynin Chloride (Ditropan Xl) 10 mg PO DAILY [facility] Last Admin: 08/06/17 09:16 Dose: 10 mg Pilocarpine HCl (Isopto Carpine 2% Opht Soln) 1 drop OU TID [facility] Last Admin: 08/06/17 13:20 Dose: 1 drop Rosuvastatin Calcium (Crestor) 5 mg PO HS [facility] Last Admin: 08/05/17 21:16 Dose: Not Given Sucralfate (Carafate Tab) 1 gm PO TID PRN PRN Reason: Heartburn Timolol Maleate (Timoptic 0.5% Ophth Soln) 1 drop OU BID [facility] Last Admin: 08/06/17 09:05 Dose: 1 drop Tramadol HCl (Ultram) 50 mg PO TID [facility] Last Admin: 08/06/17 13:01 Dose: Not Given - Labs Labs: 08/05/17 06:20 08/05/17 06:20 PT 11.3 SECONDS (9.7-12.2) 08/04/17 11:24 INR 1.0 08/04/17 11:24 APTT 31 SECONDS (21-34) 08/04/17 11:24 - Constitutional Appears: Non-toxic, Chronically Ill - Head Exam Head Exam: NORMOCEPHALIC - Eye Exam Eye Exam: PERRL - ENT Exam ENT Exam: Mucous Membranes Dry - Neck Exam Neck Exam: absent: Lymphadenopathy - Respiratory Exam Respiratory Exam: Decreased Breath Sounds, Clear to Ausculation Bilateral - Cardiovascular Exam Cardiovascular Exam: REGULAR RHYTHM - GI/Abdominal Exam GI & Abdominal Exam: Distended Assessment and Plan (1) Cellulitis Status: Acute - Assessment and Plan (Free Text) Assessment: cont rx as per Dr manzano
--- NOTE | 2017-08-06 17:53 | OP ---
PROCEDURE DATE: 08/06/2017 PREOPERATIVE DIAGNOSIS: Nonhealing wound to the right leg with infection. POSTOPERATIVE DIAGNOSIS: Nonhealing wound to the right leg with infection. PROCEDURE PERFORMED: Debridement of nonhealing wound right leg with a Dermagraft placement. SURGEON: Radu Beatty MD ANESTHESIA: General. BLOOD LOSS: 30 mL. POSTOPERATIVE CONDITION: Stable. INDICATIONS FOR SURGERY: An 87-year-old female with a nonhealing wound of her right leg, status post infection, cellulitis, and abscess. The wound is healed and now she will undergo Dermagraft placement to cover the wound prior to discharge. DESCRIPTION OF PROCEDURE: The patient was taken to the operating room, general anesthesia was administered. The right leg was prepped and draped and the open wound was again aggressively debrided and pulse irrigated. Bleeding was controlled using the Bovie and a larger blood vessel was repaired. A partial flap closure was performed at the periphery and a Dermagraft was placed over the central portion of the wound. The patient tolerated the procedure well, and returned to recovery room in stable condition. Radu Beatty MD
--- NOTE | 2017-08-06 18:28 | CP.PCM.PN ---
Subjective - Date & Time of Evaluation Date of Evaluation: 08/06/17 Time of Evaluation: 07:00 - Subjective Subjective: less pain and less swelling Objective - Vital Signs/Intake and Output Vital Signs (last 24 hours): Temp Pulse Resp BP Pulse Ox 98.1 F 58 L 15 174/82 H 96 08/06/17 15:29 08/06/17 15:29 08/06/17 15:29 08/06/17 15:29 08/06/17 15:15 Intake and Output: 08/06/17 08/06/17 06:59 18:59 Intake Total 440 Balance 440 - Medications Medications: Current Medications Amlodipine Besylate (Norvasc) 5 mg PO DAILY [facility] Apixaban (Eliquis) 5 mg PO BID [facility] Last Admin: 08/06/17 11:13 Dose: Not Given Dorzolamide HCl (Trusopt) 0 ml OU BID [facility] Last Admin: 08/06/17 09:10 Dose: 1 drop Hydrochlorothiazide (Microzide) 12.5 mg PO DAILY [facility] Cefazolin Sodium 1 gm/ Sodium (Chloride) 100 mls @ 100 mls/hr IVPB Q8H [facility] PRN Reason: Protocol Last Admin: 08/06/17 14:20 Dose: Not Given Latanoprost (Xalatan Opht) 0 ml OU HS [facility] Last Admin: 08/05/17 21:17 Dose: 2.5 ml Losartan Potassium (Cozaar) 100 mg PO DAILY [facility] Last Admin: 08/06/17 11:00 Dose: 100 mg Nitroglycerin (Nitro-Bid 2% Oint) 1 ea TOP Q6 PRN PRN Reason: high b/p m Last Admin: 08/06/17 09:45 Dose: 1 ea Nystatin (Nystop Topical Powder) 0 gm TOP BID [facility] Last Admin: 08/06/17 09:17 Dose: 1 applic Pilocarpine HCl (Isopto Carpine 2% Opht Soln) 1 drop OU TID [facility] Last Admin: 08/06/17 13:20 Dose: 1 drop Rosuvastatin Calcium (Crestor) 5 mg PO HS [facility] Last Admin: 08/05/17 21:16 Dose: Not Given Sucralfate (Carafate Tab) 1 gm PO TID PRN PRN Reason: Heartburn Timolol Maleate (Timoptic 0.5% Ophth Soln) 1 drop OU BID [facility] Last Admin: 08/06/17 09:05 Dose: 1 drop Tramadol HCl (Ultram) 50 mg PO TID [facility] Last Admin: 08/06/17 13:01 Dose: Not Given - Labs Labs: 08/05/17 06:20 08/05/17 06:20 PT 11.3 SECONDS (9.7-12.2) 08/04/17 11:24 INR 1.0 08/04/17 11:24 APTT 31 SECONDS (21-34) 08/04/17 11:24 - Constitutional Appears: Non-toxic, Chronically Ill - Head Exam Head Exam: NORMOCEPHALIC - Eye Exam Eye Exam: PERRL - ENT Exam ENT Exam: Mucous Membranes Dry - Neck Exam Neck Exam: absent: Lymphadenopathy - Respiratory Exam Respiratory Exam: Decreased Breath Sounds - Cardiovascular Exam Cardiovascular Exam: REGULAR RHYTHM - GI/Abdominal Exam GI & Abdominal Exam: Distended - Rectal Exam Rectal Exam: Deferred - Exam Exam: NORMAL INSPECTION - Back Exam Back Exam: absent: CVA tenderness (L), CVA tenderness (R) - Neurological Exam Neurological Exam: Alert, Awake, CN II-XII Intact - Psychiatric Exam Psychiatric exam: Normal Mood - Skin Skin Exam: Dry Assessment and Plan (1) Cellulitis Status: Acute - Assessment and Plan (Free Text) Assessment: cont rx as planned orders signed
[2017-08-06] MEDS: Latanoprost 2.5 ml Opht Soln OU SCH (21:18)
[2017-08-07 01:11] VITALS: PULSE 59; RESP 20
[2017-08-07] MEDS: ceFAZolin 1 GM in Sodium Chloride 0.9% 100 ML IVPB SCH (06:52)
[2017-08-07 07:55] VITALS: BP 175/82; TEMP 98.1; O2SAT 95
--- NOTE | 2017-08-07 08:09 | CP.PCM.PN ---
Subjective - Date & Time of Evaluation Date of Evaluation: 08/06/17 Time of Evaluation: 18:30 - Subjective Subjective: Pt is seen and evaluated s/p surgery on right leg , B.P is slightly high, i adjsuted medications Objective - Vital Signs/Intake and Output Vital Signs (last 24 hours): Temp Pulse Resp BP Pulse Ox 98.1 F 59 L 20 175/82 H 95 08/07/17 07:53 08/07/17 07:53 08/07/17 07:53 08/07/17 07:53 08/07/17 07:53 Intake and Output: 08/07/17 08/07/17 06:59 18:59 Intake Total 800 Balance 800 - Medications Medications: Current Medications Amlodipine Besylate (Norvasc) 5 mg PO DAILY [facility] Last Admin: 08/06/17 18:38 Dose: 5 mg Apixaban (Eliquis) 5 mg PO BID [facility] Last Admin: 08/06/17 18:37 Dose: 5 mg Dorzolamide HCl (Trusopt) 0 ml OU BID [facility] Last Admin: 08/06/17 18:49 Dose: 1 drop Hydrochlorothiazide (Microzide) 12.5 mg PO DAILY [facility] Last Admin: 08/06/17 18:37 Dose: 12.5 mg Cefazolin Sodium 1 gm/ Sodium (Chloride) 100 mls @ 100 mls/hr IVPB Q8H [facility] PRN Reason: Protocol Last Admin: 08/07/17 06:52 Dose: 100 mls/hr Latanoprost (Xalatan Opht) 0 ml OU HS [facility] Last Admin: 08/06/17 21:18 Dose: 2.5 ml Losartan Potassium (Cozaar) 100 mg PO DAILY [facility] Last Admin: 08/06/17 11:00 Dose: 100 mg Nitroglycerin (Nitro-Bid 2% Oint) 1 ea TOP Q6 PRN PRN Reason: high b/p m Last Admin: 08/06/17 09:45 Dose: 1 ea Nystatin (Nystop Topical Powder) 0 gm TOP BID [facility] Last Admin: 08/06/17 18:38 Dose: 1 applic Pilocarpine HCl (Isopto Carpine 2% Opht Soln) 1 drop OU TID [facility] Last Admin: 08/06/17 18:38 Dose: 1 drop Rosuvastatin Calcium (Crestor) 5 mg PO HS [facility] Last Admin: 08/06/17 21:19 Dose: Not Given Sucralfate (Carafate Tab) 1 gm PO TID PRN PRN Reason: Heartburn Timolol Maleate (Timoptic 0.5% Ophth Soln) 1 drop OU BID [facility] Last Admin: 08/06/17 18:38 Dose: 1 drop Tramadol HCl (Ultram) 50 mg PO TID [facility] Last Admin: 08/06/17 18:48 Dose: Not Given - Labs Labs: 08/05/17 06:20 08/05/17 06:20 PT 11.3 SECONDS (9.7-12.2) 08/04/17 11:24 INR 1.0 08/04/17 11:24 APTT 31 SECONDS (21-34) 08/04/17 11:24 - Constitutional Appears: No Acute Distress - Head Exam Head Exam: ATRAUMATIC, NORMAL INSPECTION, NORMOCEPHALIC - Eye Exam Eye Exam: EOMI, Normal appearance, PERRL Pupil Exam: NORMAL ACCOMODATION, PERRL - Respiratory Exam Respiratory Exam: Clear to Ausculation Bilateral, NORMAL BREATHING PATTERN - Cardiovascular Exam Cardiovascular Exam: REGULAR RHYTHM, +S1, +S2. absent: Murmur - GI/Abdominal Exam GI & Abdominal Exam: Soft, Normal Bowel Sounds. absent: Tenderness - Neurological Exam Neurological Exam: Alert, Awake, CN II-XII Intact, Normal Gait, Oriented x3 - Psychiatric Exam Psychiatric exam: Normal Affect, Normal Mood - Skin Skin Exam: Dry, Intact, Normal Color, Warm Assessment and Plan (1) Cellulitis Status: Acute (2) Anxiety Status: Acute (3) Chest pain Status: Acute (4) Leg pain, bilateral Status: Acute (5) Hypertension Assessment & Plan: D/C Atenolol, start norvasc 5 mg daily add Hydochlorthiazide continue Losartan 100 mg Status: Chronic
--- NOTE | 2017-08-07 08:51 | CP.PCM.PN ---
Subjective - Date & Time of Evaluation Date of Evaluation: 08/07/17 Time of Evaluation: 18:00 - Subjective Subjective: Pt seen and evaluated today Objective - Vital Signs/Intake and Output Vital Signs (last 24 hours): Temp Pulse Resp BP Pulse Ox 98.1 F 59 L 20 175/82 H 95 08/07/17 07:53 08/07/17 07:53 08/07/17 07:53 08/07/17 07:53 08/07/17 07:53 Intake and Output: 08/07/17 08/07/17 06:59 18:59 Intake Total 800 Balance 800 - Medications Medications: Current Medications Amlodipine Besylate (Norvasc) 5 mg PO DAILY [facility] Last Admin: 08/06/17 18:38 Dose: 5 mg Apixaban (Eliquis) 5 mg PO BID [facility] Last Admin: 08/06/17 18:37 Dose: 5 mg Dorzolamide HCl (Trusopt) 0 ml OU BID [facility] Last Admin: 08/06/17 18:49 Dose: 1 drop Hydrochlorothiazide (Microzide) 12.5 mg PO DAILY [facility] Last Admin: 08/06/17 18:37 Dose: 12.5 mg Cefazolin Sodium 1 gm/ Sodium (Chloride) 100 mls @ 100 mls/hr IVPB Q8H [facility] PRN Reason: Protocol Last Admin: 08/07/17 06:52 Dose: 100 mls/hr Latanoprost (Xalatan Opht) 0 ml OU HS [facility] Last Admin: 08/06/17 21:18 Dose: 2.5 ml Losartan Potassium (Cozaar) 100 mg PO DAILY [facility] Last Admin: 08/06/17 11:00 Dose: 100 mg Nitroglycerin (Nitro-Bid 2% Oint) 1 ea TOP Q6 PRN PRN Reason: high b/p m Last Admin: 08/06/17 09:45 Dose: 1 ea Nystatin (Nystop Topical Powder) 0 gm TOP BID [facility] Last Admin: 08/06/17 18:38 Dose: 1 applic Pilocarpine HCl (Isopto Carpine 2% Opht Soln) 1 drop OU TID [facility] Last Admin: 08/06/17 18:38 Dose: 1 drop Rosuvastatin Calcium (Crestor) 5 mg PO HS [facility] Last Admin: 08/06/17 21:19 Dose: Not Given Sucralfate (Carafate Tab) 1 gm PO TID PRN PRN Reason: Heartburn Timolol Maleate (Timoptic 0.5% Ophth Soln) 1 drop OU BID [facility] Last Admin: 08/06/17 18:38 Dose: 1 drop Tramadol HCl (Ultram) 50 mg PO TID [facility] Last Admin: 08/06/17 18:48 Dose: Not Given - Labs Labs: 08/05/17 06:20 08/05/17 06:20 PT 11.3 SECONDS (9.7-12.2) 08/04/17 11:24 INR 1.0 08/04/17 11:24 APTT 31 SECONDS (21-34) 08/04/17 11:24 Assessment and Plan (1) Cellulitis Status: Acute (2) Anxiety Status: Acute (3) Chest pain Status: Acute (4) Leg pain, bilateral Status: Acute (5) Hypertension Status: Chronic
[2017-08-07] MEDS: Dorzolamide 2% Opht Sol 10ml OU SCH (09:05)
[2017-08-07] MEDS: Nystatin 100,000 Units/gm Topical Pow(15 gm) TOP SCH (09:05)
[2017-08-07] MEDS: Pilocarpine 2% Opht (15 ml) OU SCH ×2 (09:05→14:25)
--- NOTE | 2017-08-08 03:00 | CP.PCM.DIS ---
Provider - Provider Date of Admission: 08/03/17 14:17 Attending physician: Radu Beatty MD Diagnosis - Discharge Diagnosis (1) Cellulitis Status: Acute (2) Anxiety Status: Acute (3) Chest pain Status: Acute (4) Leg pain, bilateral Status: Acute (5) Hypertension Status: Chronic Hospital Course - Lab Results Lab Results: Micro Results 08/03/17 13:30 Blood Blood Culture - Preliminary NO GROWTH AFTER 4 DAYS 08/03/17 13:00 Blood Blood Culture - Preliminary NO GROWTH AFTER 4 DAYS 08/05/17 Unknown Leg - Right Gram Stain - Final 08/05/17 Unknown Leg - Right Wound Culture - Preliminary No growth. 08/04/17 18:10 Leg - Right Gram Stain - Final 08/04/17 18:10 Leg - Right Wound Culture - Final No growth. Most Recent Lab Values WBC 8.7 K/uL (4.8-10.8) 08/05/17 06:20 RBC 3.54 Mil/uL (3.80-5.20) L 08/05/17 06:20 Hgb 12.2 g/dL (11.0-16.0) 08/05/17 06:20 Hct 35.7 % (34.0-47.0) 08/05/17 06:20 MCV 100.8 fL (81.0-99.0) H 08/05/17 06:20 MCH 34.4 pg (27.0-31.0) H 08/05/17 06:20 MCHC 34.2 g/dL (33.0-37.0) 08/05/17 06:20 RDW 13.6 % (11.5-14.5) 08/05/17 06:20 Plt Count 233 K/uL (130-400) 08/05/17 06:20 MPV 10.0 fL (7.2-11.7) 08/05/17 06:20 Neut % (Auto) 68.2 % (50.0-75.0) 08/05/17 06:20 Lymph % (Auto) 18.9 % (20.0-40.0) L 08/05/17 06:20 [place] % (Auto) 11.0 % (0.0-10.0) H 08/05/17 06:20 Eos % (Auto) 0.8 % (0.0-4.0) 08/05/17 06:20 Baso % (Auto) 1.1 % (0.0-2.0) 08/05/17 06:20 Neut # (Auto) 6.0 K/uL (1.8-7.0) 08/05/17 06:20 Lymph # (Auto) 1.7 K/uL (1.0-4.3) 08/05/17 06:20 [place] # (Auto) 1.0 K/uL (0.0-0.8) H 08/05/17 06:20 Eos # (Auto) 0.1 K/uL (0.0-0.7) 08/05/17 06:20 Baso # (Auto) 0.1 K/uL (0.0-0.2) 08/05/17 06:20 PT 11.3 SECONDS (9.7-12.2) 08/04/17 11:24 INR 1.0 08/04/17 11:24 APTT 31 SECONDS (21-34) 08/04/17 11:24 Sodium 139 mmol/L (132-148) 08/05/17 06:20 Potassium 3.8 mmol/L (3.6-5.2) 08/05/17 06:20 Chloride 105 mmol/L (98-107) 08/05/17 06:20 Carbon Dioxide 24 mmol/L (22-30) 08/05/17 06:20 Anion Gap 14 (10-20) 08/05/17 06:20 BUN 14 mg/dL (7-17) 08/05/17 06:20 Creatinine 0.6 mg/dL (0.7-1.2) L 08/05/17 06:20 Est GFR ( Amer) > 60 08/05/17 06:20 Est GFR (Non-Af Amer) > 60 08/05/17 06:20 Random Glucose 99 mg/dL (65-105) 08/05/17 06:20 Calcium 8.9 mg/dl (8.6-10.4) 08/05/17 06:20 Discharge Exam - Head Exam Head Exam: ATRAUMATIC, NORMAL INSPECTION, NORMOCEPHALIC Discharge Plan - Follow Up Plan Condition: STABLE Disposition: HOME/ ROUTINE Instructions: High Blood Pressure in Adults, Surgical Wound (DC), Wound Care ( DC), Cefadroxil, Cellulitis (DC), Cellulitis (GEN) Additional Instructions: Discharge in AM 5/5 after last dose of antibiotics See post op RX and instructions Call Dr. Beatty's office to set up an appointment for Wednesday08/13/2017 for dressing removal. Take Duricef as prescribed, 1 tab/cap by mouth Twice a day Take tylenol or advil for pain. Important instructions: Light Activity - Minimal Walking. Keep Right leg elevated. Keep Right leg dressing clean / dry - cover with plastic in shower. Referrals: Radu Beatty MD [Staff Provider] -
== END 2017-08-07 14:15 | disposition home or self-care (01) | DRG 574 ==
LOC: C.ER 11:46 → C.9E 14:17 → C.3T 19:35
PROVIDERS: ADMIT Surgery; ATTEND Surgery
PROC: 0JX Subcutaneous Tissue and Fascia, Transfer (ICD-10-PCS; 2017-08-04)
PROC: 0Y990ZZ Drainage of Right Lower Extremity, Open Approach (ICD-10-PCS; 2017-08-04)
PROC: 0JBN0ZZ Excision of Right Lower Leg Subcutaneous Tissue and Fascia, Open Approach (ICD-10-PCS; principal; 2017-08-04 12:15)
PROC: 0JBN0ZZ Excision of Right Lower Leg Subcutaneous Tissue and Fascia, Open Approach (ICD-10-PCS; 2017-08-05)
PROC: 0Y990ZZ Drainage of Right Lower Extremity, Open Approach (ICD-10-PCS; 2017-08-05)
PROC: 0JQN3ZZ Repair Right Lower Leg Subcutaneous Tissue and Fascia, Percutaneous Approach (ICD-10-PCS; 2017-08-05)
PROC: 0JDN3ZZ Extraction of Right Lower Leg Subcutaneous Tissue and Fascia, Percutaneous Approach (ICD-10-PCS; 2017-08-05)
PROC: 0JBN0ZZ Excision of Right Lower Leg Subcutaneous Tissue and Fascia, Open Approach (ICD-10-PCS; 2017-08-06)
PROC: 0HRKXK4 Replacement of Right Lower Leg Skin with Nonautologous Tissue Substitute, Partial Thickness, External Approach (ICD-10-PCS; 2017-08-06)
PROC: 0JDN3ZZ Extraction of Right Lower Leg Subcutaneous Tissue and Fascia, Percutaneous Approach (ICD-10-PCS; 2017-08-06)
DX: L02.415 Cutaneous abscess of right lower limb (principal); T81.4XXA Infection following a procedure, initial encounter; L03.116 Cellulitis of left lower limb; F41.9 Anxiety disorder, unspecified; R07.9 Chest pain, unspecified; I10 Essential (primary) hypertension; Z88.5 Allergy status to narcotic agent; Z79.01 Long term (current) use of anticoagulants; I25.10 Atherosclerotic heart disease of native coronary artery without angina pectoris; F32.9 Major depressive disorder, single episode, unspecified; Z86.718 Personal history of other venous thrombosis and embolism; Z86.711 Personal history of pulmonary embolism; H40.9 Unspecified glaucoma; M19.90 Unspecified osteoarthritis, unspecified site; M54.30 Sciatica, unspecified side; L03.115 Cellulitis of right lower limb